=== PATIENT | male | born 1980 | race Two or more races ===

== ENCOUNTER 2024-01-16 10:12 | Outpatient (AMB) | payer MEDICAID, SELFPAY ==
[2024-01-16 10:25] VITALS: BP 72/46; PULSE 96; RESP 16; TEMP 36.3; O2SAT 95
--- NOTE | 2024-01-16 10:25 | PD.RESCLINIC ---
Vital Signs 01/16/24 10:25 Weight 37.648 kg Weight Measurement Method Standing Scale BP 72/46 L Blood Pressure Source Automatic Cuff Blood Pressure Location Left Upper Arm Position Sitting Respiration 16 Pulse 96 Pulse Source Monitor Temp 97.4 F Temp Source Oral Pulse Oximetry (%) 95 Oxygen Delivery Method Room Air Allergies/Meds Allergies & Medications Allergies No Known Allergies Allergy (Verified 02/03/24 14:04) Medication Reconciliation ondansetron 4 mg disintegrating tablet 4 mg PO Q6H PRN nausea and vomiting #10 tabs 08/29/23 [Rx Confirmed 01/16/24] compression socks, medium #2 ea 11/07/23 [Rx Confirmed 01/16/24] midodrine 10 mg tablet 10 mg PO TID PRN hypotension #30 tabs 11/07/23 [Rx Confirmed 01/16/24] dicyclomine 10 mg capsule 10 mg PO TID #60 caps 12/07/23 [Rx Confirmed 01/16/24] loperamide 2 mg capsule 2 mg PO TID #60 caps 12/07/23 [Rx Confirmed 01/16/24] zinc sulfate 50 mg zinc (220 mg) capsule 220 mg (4.4 x 50 mg zinc (220 mg)) PO QDAY #60 caps 12/07/23 [Rx Confirmed 01/16/24] blood sugar diagnostic (Accu-Chek Guide test strips) #100 ea 01/16/24 [Rx] blood-glucose meter (Accu-Chek Guide Glucose Meter) #1 ea 01/16/24 [Rx] fludrocortisone 0.1 mg tablet 0.1 mg PO QDAY #30 tabs 01/16/24 [Rx] lancets 28 gauge (Acti-Anderson Lancets) #100 ea 01/16/24 [Rx] ondansetron 4 mg disintegrating tablet 4 mg PO Q8H #60 tabs 01/16/24 [Rx] acetaminophen 300 mg-codeine 30 mg tablet 2 tab PO TID PRN pain #20 tabs 02/03/24 [Rx] cefdinir 300 mg capsule 300 mg PO BID #14 caps 02/03/24 [Rx] MA Intake Visit Data Collection New Patient or Established: Established Patient (seen at [facility] within 3 years) Seen by Clinical Staff ONLY (RN/MA): No Pain Present Currently: No Pain scale:: 0 Pain Scale Used: Marc-Adler/Numerical PCP or OBGYN visit in last 3 months: Yes Do You Feel Safe at Home: Yes Authorities Contacted: N/A Smoking Status Smoking Status: Never smoker Immunization / Flu Flu Vaccine in the Last 12 Months: No Flu Vaccine Exclusion Criteria: No Exclusion Criteria Past Medical History Past Medical History NEUROLOGIC: Negative Neurological Disorders or Seizures CARDIAC: Positive Hypotension; Negative Cardiac Disorders or Congestive Heart Failure RESPIRATORY: Negative Chronic Obstructive Pulmonary Disease (COPD) or Asthma GASTROINTESTINAL: Negative Gastrointestinal Disorders or Hepatitis GENITOURINARY: Negative Genitourinary Disorders or Renal Disease REPRODUCTIVE: Negative Testicular Cancer ENDOCRINE: Positive Diabetes Mellitus Type 2; Negative Diabetes Mellitus Type 1 HEMATOLOGIC: Negative Blood Disorders or Sickle Cell Disease PSYCHO/SOCIAL: Positive Anxiety OTHER HISTORY: Positive Hospitalization and Chicken Pox; Negative Down Syndrome, Developmental Delay, Shingles, Falls, Blood Transfusions, Anesthesia Reactions, Organ Transplant, Chemotherapy, Radiation Therapy, Hyperbaric Therapy, MRSA, VRSA, Vancomycin-Resistant Enterococci, Human Immunodeficiency Virus (HIV), Measles, Mumps, Rubella (Hungarian Measles), Pertussis, Clostridium Difficile, Cancer or Testicular Cancer Family History FAMILY HISTORY: Positive Family Cardiac Disorders and Family Gastrointestinal Problems; Negative Family Cancer, Family Surgery or Family Anesthesia Reaction Surgical History SURGICAL: Negative Vasectomy or Organ Transplant Social History SMOKING STATUS: Smoking status: Never smoker ALCOHOL: Alcohol Intake: Former HOUSING: Housing: House LIVES WITH: Lives With: Children, Family and Spouse Patient Portal [employer] Social History Living Situation History Housing: House Housing Other:: Pt lives with and Tobacco History Smoking Status: Never smoker Alcohol History Alcohol Intake: Former Substance Use History Substance Use: THC Domestic Abuse History Do You Feel Safe at Home: Yes Review of Systems Report any current symptoms Only answer those that you have currently: Past Medical History Past Medical History Have you ever been diagnosed with any of the following: Neurological Problems Seizures: No Cardiology Problems Congestive Heart Failure: No Hypotension: Yes Respiratory Problems Chronic Obstructive Pulmonary Disease (COPD): No Asthma: No Stomache/Intestinal Problems Hepatitis: No Genital/Urinary Problems Renal Disease: No Reproductive Problems Testicular Cancer: No Endocrine Problems Diabetes Mellitus Type 1: No Diabetes Mellitus Type 2: Yes Blood Problems Sickle Cell Disease: No Psychologic Problems Anxiety: Yes Other Problems Hospitalization: Yes Down Syndrome: No Developmental Delay: No Shingles: No Falls: No Blood Transfusions: No Anesthesia Reactions: No Organ Transplant: No Chemotherapy: No Radiation Therapy: No Hyperbaric Therapy: No MRSA: No VRSA: No Vancomycin-Resistant Enterococci: No Human Immunodeficiency Virus (HIV): No Chicken Pox: Yes Measles: No Mumps: No Rubella (Hungarian Measles): No Pertussis: No Clostridium Difficile: No Cancer: No History of Present Illness HPI Narrative 12/12/2023: Chucho is a 43-year-old male patient with significant medical history for DM2, chronic intermittent diarrhea, orthostatic hypotension and chronic marijuana abuse who was admitted on December 03, 2023 for symptomatic UTI, syncope, orthostatic hypotension and evaluation of chronic diarrhea. Patient has been admitted to [facility] for similar complaints of syncope, orthostatic hypotension and diarrhea in the past. Today patient is doing okay. He had come in saying he has been eating more, has not had diarrhea since he left the hospital and has not vomited still at the hospital either. Says he had 1 time where he had a syncopal episode while at home, but did not fall. Says that he does not weigh himself daily, but says that he has gained an extra 5 pounds. Says that he was not able to take the fludrocortisone medicine he was given at discharge because the pharmacy had canceled the order. Is further requiring what is going on with him. Denies any chest pain, shortness of breath, numbness, tingling, headache, abdominal pain, NVD. Confirms that he has not traveled out to the [facility] within the past year, says he used to work for [employer] in the past, used to work for [employer]. Also says that he noticed his chronic diarrhea occurring when he had taken metformin but still continue to persist after he had stopped taking it. Also endorses that his weight loss and symptoms have occurred about a year and a half ago and he has lost about 50 pounds. Says his bowel movements have been solid and his last one was yesterday 12/19/2023: 43 y/o male with PMHx of DM2, chronic intermittent diarrhea, orthostatic hypotension and chronic marijuana abuse who is seen over telephone visit. Reports that he is doing well, has not had a syncopal episode since he was last seen in the hospital. Reports that he has been taking his fludrocoritsone and says that it has been helping him but it has not had significant improvement in his blood pressure. Says that he has never had a tilt table test done or has a database software technician. Reports that he has gained 10 lbs, intake has been good and his weight is 80 lbs now. No other complaints at this time. 01/16/2024: Chucho is a 43 y/o male who comes to the office for follow-up of orthostatic hypotension, chronic diarrhea with associated nausea and vomiting. Patient reports he is doing well, has not felt nauseous since [place], has been eating and is weighing currently at 82 pounds which is improved for him. He also says that he has been working with the physical therapist at home and has been improving from that perspective and has been using his chair as well. He says he gets up slowly to avoid passing out which she has not done for a long time now. He also says that he has been taking his medicines as prescribed and is requesting some refills on some. He reports that his bowel movements have been sometimes solid and sometimes loose but have been good. Has not seen the database software technician yet. No other complaints at this time Review of Systems Review of Systems Narrative Review of Systems: Constitutional: No fever, chills, fatigue, weakness, weight loss HEENT: No eye pain, vision loss, ear pain, hearing loss, dysphagia, Cardiovascular: No chest pain, palpitations, edema, pain with walking Respiratory: No cough, shortness of breath, wheezing GI: No NVD, abdominal pain, constipation, blood in stool, loss of appetite, heartburn Extremities: No presence of pitting edema MSK: No back pain, joint pain, joint swelling Neuro: No dizziness, numbness, weakness, headaches, seizures, tremors Psych: No anxiety, depression Objective/Exam Narrative Physical exam: General: AAOx3, NAD, anorexic but pleasant male, looks emaciated, in chairs sitting down with HEENT: Moist mucous membranes, conjunctiva clear, EOMI, PERRLA, Cardiovascular: S1, S2, radial pulses +2 bilat, RRR Pulmonary: CTAB bilat no cough, no wheezing GI: No tenderness to light or deep palpitation, no guarding, rigidity, rebound tenderness or distension, rib cage visible Extremities: No presence of trace or pitting edema in lower extremities bilaterally, dorsalis pedis pulses +2 bilaterally, little to no musculature in lower extremities Neuro: AAOx3, no focal motor or sensory deficits in the UE or LE bilat Psych: Good judgement, thought and behavior. Cooperative Assessment & Plan Diagnosis / Problem List (1) Failure to thrive: Status: Acute Qualifiers: Failure to thrive age range: in adult Qualified Code(s): R62.7 - Adult failure to thrive Assessment & Plan: Patient reports a weight loss of about 50 pounds within the past year and a half. In the hospital patient was worked up for any malignancy and/or reason for significant weight loss Patient has had imaging of chest abdomen pelvis, head including MRI which have been unremarkable Negative for Giardia, hepatitis, HIV, celiac Pending cortisol level which was drawn in the hospital Patient was not given fludrocortisone upon discharge at the pharmacy Total cortisol level normal, ruling out AI at this time Patient is still experiencing hypotension, has not seen database software technician Reports that he has seen improvement with fludrocortisone, will continue with that until patient sees database software technician Plan: Refill fludrocortisone 0.1 mg daily Encourage patient to increase oral intake (2) Cachexia: Status: Acute Assessment & Plan: As above Plan: As above (3) Severe hypotension: Status: Acute Assessment & Plan: Patient had walked into clinic with a blood pressure of 41/33 Manually measured given 70/50 Patient has history of orthostatic hypotension Currently on midodrine 10 mg 3 times daily Total cortisol came back normal, ruling out AI We will need to further workup Will need Tilt table for autonomic workup Plan: Pending cardiology referral with Dr. Ayers in [place] for Tilt Table test Continue with fludrocortisone 0.1 mg Continue with midodrine 10 mg 3 times daily (4) Syncope: Status: Acute Assessment & Plan: As above Plan: As above (5) Diarrhea: Status: Acute Assessment & Plan: Has not had diarrhea since he has left the hospital Was seen by GI, Dr. Marie, unable to get an appoint with them due to insurance Has not had colonoscopy EGD showed Devine's esophagus, esophagitis gastritis Will need colonoscopy for further workup Given dicyclomine and loperamide by Dr. Marie Plan: Pending referral to [facility] 2. Continue dicyclomine and loperamide (6) Vomiting: Status: Acute Assessment & Plan: As above Plan: Refilled Zofran four milligrams sublingual (7) Diabetes mellitus: Status: Acute Assessment & Plan: Patient says he takes 3 units of Lantus Says that he has been running out of some supplies Does not take short acting Plan: *Strips and glucometer Additional Assessment Attending note: I, Lambert Trejo MD, attest that I was physically present for the [place] portions of the service and evaluated the patient with the resident and I reviewed and discussed the case with the resident and agree with the resident's findings and plans of care as documented above. Follow-up visit. Improvement in nausea. Weight has gone up approximately 3 kg. Has been working with physical therapy. Changes positions slowly, has not felt presyncopal. Tolerating medications. Bowel movements occasionally formed, sometimes still with loose stool. Remains on fludrocortisone. Remains on midodrine. To follow-up with cardiology. Issues as noted. Lambert Trejo MD Physician Billing Established Patient Established Patient: E/M Level 3-CPT 14003 Office Procedures [facility] Level of Care Nursing/Assessment Patient Status: Established Patient Nursing Assessment/Reassessment: Medication Reconciliation, Update PMH in EMR and Vital Signs Coordination of Care: Complex Care and Chronic Disease 1-5, Education Complex Pt/Fam and Staff clarify orders Established Patient Charge Established Patient Point Assignment: 85 Established Patient Point Charge: EP Level 3 (80-115)
== END 2024-01-16 11:45 | disposition home or self-care (01) ==
LOC: HODAHC 10:12
PROVIDERS: Supervising Provider Internal Medicine
DX: I95.1 Orthostatic hypotension (principal); E11.9 Type 2 diabetes mellitus without complications; Z79.4 Long term (current) use of insulin; Z76.0 Encounter for issue of repeat prescription; R11.2 Nausea with vomiting, unspecified; K52.9 Noninfective gastroenteritis and colitis, unspecified; R19.7 Diarrhea, unspecified
CPT/HCPCS: 99213; G0463

== ENCOUNTER 2024-02-03 14:02 | Emergency (ER) | payer MEDICAID, SELFPAY ==
[2024-02-03 14:10] VITALS: BP 159/107; PULSE 100; RESP 18; TEMP 37.3; O2SAT 99; BMI 13.4
--- NOTE | 2024-02-03 14:17 | XR_ITS ---
Examination: PA lateral chest 2 views TECHNIQUE: Upright PA lateral chest 2 views Exam date and time: February 03, 2024 1427 hours Comparison 11/03/2023 INDICATIONS: Coughing today. FINDINGS: Normal heart size Lungs are clear. The osseous structures are intact IMPRESSION: No active disease
--- NOTE | 2024-02-03 14:18 | PD.EDRME ---
Rapid Medical Screening Exam RME Arrival date/time: 02/03/24 14:02 43-year-old chronically ill-appearing male presents emergency department complains of nausea vomiting and abdominal pain Chief Complaint: Abdominal Pain Time Seen by Provider: 02/03/24 14:05 Vital signs: Vital Signs Temperature 99.2 F 02/03/24 14:10 Pulse Rate 100 02/03/24 14:10 Respiratory Rate 18 02/03/24 14:10 Blood Pressure 159/107 H 02/03/24 14:10 Pulse Oximetry (%) 99 02/03/24 14:10 Oxygen Delivery Method Room Air 02/03/24 14:10
[2024-02-03] MEDS: HYDROcodone/APAP 5/325 TABLET 1 TAB PO (14:25)
[2024-02-03 14:58] LABS: Collection Type, Urine Clean Catch
[2024-02-03 15:01] LABS: Base Excess, Venous -1 (-3-3); O2 Saturation, Venous 78 % (96-97); PCO2, Venous 36 mmHg (36-56); PO2, Venous 40 mmHg (15-58); pH, Venous 7.41 (7.33-7.66)
[2024-02-03 15:02] LABS: Basophils % (Auto) 1 % (0-2.5); Eosinophils % (Auto) 0 % (0-10); Hematocrit 32.3 % (41.0-53.0); Hemoglobin 11.4 g/dL (13.5-16.0); Immature Granulocytes % (Auto) 0 % (0-0); Immature Granulocytes Auto 0.03 Thou/mm3 (0.00-0.00); Lactate (Lactic Acid) 1.6 mMol/L (0.4-2.0); Lymphocytes # (Auto) 1.4 Thou/mm3 (1.0-4.8); Lymphocytes % (Auto) 16 % (10-50); Mean Corpuscular HGB Conc 35.3 g/dl (31.0-37.0); Mean Corpuscular Hemoglobin 30.6 pg (25.0-35.0); Mean Corpuscular Volume 87 fL (80-100); Monocytes # (Auto) 0.3 Thou/mm3 (0.0-0.8); Monocytes % (Auto) 3 % (0-12); Neutrophils % (Auto) 80 % (37-80); Nucleated Red Blood Cell % 0 /100 WBC (0); Platelet Count 219 Thou/mm3 (140-440); RDW Standard Deviation 38.2 fL (35.1-43.9); Red Blood Count 3.73 Miln/mm3 (4.50-5.90); White Blood Count 8.8 Thou/mm3 (3.8-10.6)
[2024-02-03 15:05] LABS: Bilirubin,Urine Negative (Negative); Blood,Urine Negative (Negative); Clarity,Urine Clear (Clear/Hazy); Color,Urine Lt-Yellow (Lt Yel-Yel); Glucose, Urine Negative (Negative); Ketones,Urine Trace (Negative); Leukocyte Esterase,Urine Negative (Negative); Nitrite,Urine Negative (Negative); PH,Urine 5.5 (5.0-7.0); Protein,Urine Negative (Neg - Trace); RBC,Urine 8 /hpf (0-3); Specific Gravity,Urine 1.015 (1.001-1.035); Squamous Epithelial Cell,Urine < 1 /hpf (0-5); Urobilinogen,Urine Negative mg/dL (0.0-1.0); WBC,Urine 5 /hpf (0-5)
[2024-02-03 15:08] LABS: Beta Hydroxybutyrate 1.7 mmol/L (<0.6)
[2024-02-03 15:19] LABS: Glucose Estimated Average 163 mg/dL (80-131); Hemoglobin A1C 7.3 % Hgb (4.8-6.0)
[2024-02-03 15:45] LABS: Alanine Aminotransferase 19 U/L (10-49); Albumin, Serum 4.5 gm/dL (3.5-5.0); Albumin/Globulin Ratio 1.7 (1.2-2.2); Alkaline Phosphatase 116 U/L (46-116); Anion Gap 13 (7-16); Aspartate Amino Transferase 23 U/L (0-34); BUN/Creatinine Ratio 9 Ratio (12-20); Bilirubin,Total 0.6 mg/dL (0.3-1.2); Blood Urea Nitrogen 13 mg/dL (9-23); Calcium 9.7 mg/dL (8.3-10.6); Calcium (Corrected) 9.7 mg/dL (8.5-10.1); Carbon Dioxide 20.3 mMol/L (20.0-31.0); Chloride 103 mMol/L (98-107); Creatinine (Component) 1.4 mg/dL (0.6-1.3); Estimated Creatinine Clearance 34.6 mL/min (>60); Globulin 2.6 gm/dL (2.3-3.5); Glucose 179 mg/dL (74-106); Lipase 23 U/L (12-53); Osmolality,Calculated 276 (275-295); Potassium 4.2 mMol/L (3.4-5.1); Procalcitonin < 0.04 ng/ml (0.0-0.49); Sodium 136 mMol/L (136-145); Total Protein 7.1 gm/dL (5.7-8.2); eGFR > 60 See Note
--- NOTE | 2024-02-03 16:32 | EDNOTE_ITS ---
ED Abdominal Pain RME/HPI General Chief Complaint: Abdominal Pain Stated complaint: ABD PAIN TODAY Time seen by provider: 02/03/24 14:05 Arrival date/time: 02/03/24 14:02 RME / HPI RME / HPI narrative: 02/03/24 14:02 43-year-old chronically ill-appearing male presents emergency department complains of nausea vomiting and abdominal pain DR. MAC MAIN ED EVALUATION 43 year old male with history of insulin-dependant diabetes and hypotension presents to the ED for evaluation of abdominal pain today. Patient reports pain began this morning and located most to the right mid abdomen, rating as severe. Accompanied by nausea, blood in vomit (~ 1 teaspoon), and nonbloody diarrhea. Patient reports he has taken Aspirin at home with no improvement. Denies fevers, chills, chest pain, cough, shortness of breath, or urinary symptoms. Related Data Previous Rx's ?Medication ?Instructions ?Recorded ondansetron 4 mg disintegrating 4 mg PO Q6H PRN nausea and 08/29/23 tablet vomiting #10 tabs compression socks, medium #2 ea 11/07/23 midodrine 10 mg tablet 10 mg PO TID PRN hypotension #30 11/07/23 tabs dicyclomine 10 mg capsule 10 mg PO TID #60 caps 12/07/23 loperamide 2 mg capsule 2 mg PO TID #60 caps 12/07/23 zinc sulfate 50 mg zinc (220 mg) 220 mg (4.4 x 50 mg zinc (220 mg)) 12/07/23 capsule PO QDAY #60 caps blood sugar diagnostic (Accu-Chek #100 ea 01/16/24 Guide test strips) blood-glucose meter (Accu-Chek #1 ea 01/16/24 Guide Glucose Meter) fludrocortisone 0.1 mg tablet 0.1 mg PO QDAY #30 tabs 01/16/24 lancets 28 gauge (Acti-Anderson #100 ea 01/16/24 Lancets) ondansetron 4 mg disintegrating 4 mg PO Q8H #60 tabs 01/16/24 tablet Allergies Allergy/AdvReac Type Severity Reaction Status Date / Time No Known Allergies Allergy Verified 02/03/24 14:04 Review of Systems Review of Systems Narrative Review of Systems: GEN: No fever, no chills, no weight loss EYES: No discharge, no visual changes, no pain HEENT: No ear pain, no congestion, no sore throat PULM: No shortness of breath, no cough, no congestion CV: No chest pain, no dyspnea on exertion, no palpitations GI: +N/V/D, +pain, no constipation : No frequency, no urgency and no dysuria MUSC/SKEL No joint pain, no back pain SKIN: No rash PSYCH: No hallucinations, no depression HEME/LYMPH: No easy bleeding or bruising tendencies NEURO: No weakness, no headache Past Medical History Past Medical History CARDIAC: Positive Hypotension ENDOCRINE: Positive Diabetes Mellitus Type 2 PSYCHO/SOCIAL: Positive Anxiety OTHER HISTORY: Positive Hospitalization and Chicken Pox Family History FAMILY HISTORY: Positive Family Cardiac Disorders and Family Gastrointestinal Problems; Negative Family Cancer, Family Surgery or Family Anesthesia Reaction Surgical History SURGICAL: Negative Vasectomy Social History SMOKING STATUS: Never smoker SUBSTANCE USE: marijuana, amphetamines (Positive and U tox) and methamphetamine ED Exam Narrative Physical exam: GENERAL APPEARANCE: Well hydrated, cachectic, groaning and moaning in pain, moving around in bed. VITALS: All vitals were reviewed and the pulse ox is 99% on room air which is normal according to my interpretation. HEENT: Normocephalic, atramatic, EOMI, EACs are patent. There is no bulge or retraction. Throat without erythema or exudate. Moist oromucosa. No jaundice NECK: Supple, no JVD or bruits. CARDIOVASCULAR: Heart regular without S3-S4 or murmur. No rubs or gallops. LUNGS/CHEST: Clear to auscultation bilaterally. No rales, rhonchi, or wheezing. Normal inspection. ABDOMEN: Soft, scaphoid, skinny, cachectic, tenderness in the right lower right mid and left lower quadrants, normal bowel sounds. No pulsatile masses. No rebound, rigidity, or guarding. No incarcerated hernia. EXTREMITIES: Normal inspection and palpation. No edema, clubbing, or cyanosis. Intact CSM SKIN: Warm and dry without rashes. Normal inspection. MUSCULOSKELETAL: Normal inspection. No gross deformity, full ROM all extremities NEURO: Alert and oriented x3. Cranial nerves II through XII grossly intact. Course Quality Measures none Orders Category Date Time Status CT Screening NOW Care 02/03/24 16:[address] abdomen pelvis w con Stat Exams 02/03/24 16:42 Ordered XR chest 2V Stat Exams 02/03/24 14:17 Completed A1C [Glycohemoglobin w (eAG)] Stat Lab 02/03/24 14:50 Completed Beta Hydroxybutyrate Stat Lab 02/03/24 14:50 Completed Blood Culture (Lab) Stat Lab 02/03/24 14:50 Received CBC Stat Lab 02/03/24 14:50 Completed Comprehensive Metabolic Panel Stat Lab 02/03/24 14:50 Completed Drug Screen,Urine Stat Lab 02/03/24 16:44 Ordered Lactate (Lactic Acid) Stat Lab 02/03/24 14:50 Completed Lipase Stat Lab 02/03/24 14:50 Completed Procalcitonin Stat Lab 02/03/24 14:50 Completed Urinalysis Stat Lab 02/03/24 14:50 Completed Urine Culture Stat Lab 02/03/24 14:50 Received VBG [Venous Blood Gas] Stat Lab 02/03/24 14:50 Completed HYDROcodone*/APAP 5/325 [[place] 5/325] Med 02/03/24 14:17 Discontinued 1 tab PO X1 ONE Morphine Inj Med 02/03/24 16:42 Discontinued 4 mg IVP X1 ONE Ondansetron Inj [Zofran Inj] Med 02/03/24 16:42 Discontinued 4 mg IV X1 ONE Sodium Chloride 0.9% 1000 ml [Ns] 1,000 ml Med 02/03/24 16:43 Discontinued IV 999 mls/hr Vital Signs Vital signs: Vital Signs Temperature 99.2 F 02/03/24 14:10 Pulse Rate 100 02/03/24 14:10 Respiratory Rate 18 02/03/24 14:10 Blood Pressure 159/107 H 02/03/24 14:10 Pulse Oximetry (%) 99 02/03/24 14:10 Oxygen Delivery Method Room Air 02/03/24 14:10 Abdominal Pain MDM MDM Narrative MDM Narrative:: I, Karen Calixto, am scribing for and in the presence of Dr. Mac. CBC is negative. CMP is negative except for a sugar 179. Beta hydroxy is 1.7 which may reflect dehydration. Venous blood gas is negative. No sign of DKA. UA negative. Procalcitonin negative. Lactic acid is negative. Lipase is negative When I saw the patient, he was still well in the lobby. I am ordering for IV fluids, medication for pain and CT abdomen and pelvic. 6 PM, still pending CT abdomen and pelvic, the patient is stable and is now signed out to Dr. Sanchez Patient data External records reviewed:: [facility] previous records (I reviewed admission from 12/02/2023 through 12/09/2023) Clinical information provided by:: patient and spouse (- adds to hpi ) Social determinants that could affect healthcare access:: substance use (chronic marijuana use ) Patient has the following chronic illnesses:: IDDM type 2, hypotension How is presenting disease/condition affected by chronic disease/condition?: exacerbated by Evaluation data The following diagnostics were reviewed and interpreted by me:: lab results and radiology exam(s) Lab and/or radiology exams considered but not ordered:: None Interpretation Summary: Ordering Physician: Elisabeth GIBSON)Michele NP Date of Service: 02/03/24 Procedure(s): XR chest 2V Accession Number(s): [id number] cc: Elisabeth GIBSON),Michele DIAZ; Maxim Jamison MD~ Examination: PA lateral chest 2 views TECHNIQUE: Upright PA lateral chest 2 views Exam date and time: February 03, 2024 1427 hours Comparison 11/03/2023 INDICATIONS: Coughing today. FINDINGS: Normal heart size Lungs are clear. The osseous structures are intact IMPRESSION: No active disease Dictated By: Maxim Jamison MD Signed By: <Electronically signed by Maxim Jamison MD in [place]> 02/03/24 1443 Medications / Prescriptions Medications or Prescriptions considered but not ordered:: None Medication administrations:: Medication Administration History Discontinued Medications Hydrocodone Bitart/Acetaminophen (Hydrocodone/Apap 5/325 Tablet) 1 tab PO X1 ONE Stop: 02/03/24 14:18 Last Admin: 02/03/24 14:25 Dose: 1 tab Documented By: CHLOE Sodium Chloride (Ns) 1,000 mls @ 999 mls/hr IV .Q1H1M ONE Stop: 02/03/24 17:43 Morphine Sulfate (Morphine Sulf Inj 10 Mg/Ml Vial) 4 mg IVP X1 ONE Stop: 02/03/24 16:43 Ondansetron HCl (Ondansetron Inj 2 Mg/Ml Inj 2 Ml) 4 mg IV X1 ONE; Protocol Stop: 02/03/24 16:43 See above Consultations Consultation(s) initiated? (list below): No Diagnosis Differential diagnosis abdominal pain: abdominal pain, acute appendicitis and ca lculus of kidney Most likely diagnosis given after review of the tests above:: Abdominal pain Admission Indicated Admission indicated?: not indicated Explain why admission is indicated or not indicated:: Patient signed out to Dr. Mac pending CT abdomen. Admission Request Was there a request for admission?: No Disposition Plan Disposition Plan: other (specify) (Signed out pending CT abdomen. ) Discharge Plan Plan Disposition Comment: Stable at signout Prescriptions/Referrals Prescriptions/Med Rec: No Action fludrocortisone 0.1 mg tablet 0.1 mg PO QDAY Qty: 30 1RF ondansetron 4 mg tablet,disintegrating 4 mg PO Q8H Qty: 60 0RF (DME) blood-glucose meter [Accu-Chek Guide Glucose Meter] Misc See Rx Instructions .Route Qty: 1 0RF Rx Instructions: As directed (DME) Accu-Chek Guide test strips Strip See Rx Instructions .Route Qty: 100 2RF Rx Instructions: As directed (DME) lancets [Acti-Anderson Lancets] 28 gauge misc See Rx Instructions .Route Qty: 100 2RF Rx Instructions: As directed ondansetron 4 mg tablet,disintegrating 4 mg PO Q6H PRN (Reason: nausea and vomiting) Qty: 10 0RF zinc sulfate 50 mg zinc (220 mg) Capsule 220 mg PO QDAY Qty: 60 0RF dicyclomine 10 mg capsule 10 mg PO TID Qty: 60 0RF loperamide 2 mg capsule 2 mg PO TID Qty: 60 0RF midodrine 10 mg tablet 10 mg PO TID PRN (Reason: hypotension) Qty: 30 0RF Rx Instructions: do not give last dose of day after 6PM or within 4 hrs of bedtime Give as needed for blood pressure below 110 systolic (DME) compression socks, medium Misc See Rx Instructions .Route Qty: 2 0RF Rx Instructions: As directed Referrals: Sidney Dick PA-C [Primary Care Provider] - In 1 week Problem List Clinical Impression: Abdominal pain Patient/Caregiver Discharge Instructions Print Language: Frisian
--- NOTE | 2024-02-03 16:42 | XR_ITS ---
Examination: CT abdomen with intravenous contrast CT pelvis with intravenous contrast 2-D coronal reconstructions 2-D sagittal reconstructions Date and time of exam:February 03, 2024 1927 hrs. Indications: Onset right lower abdominal pain today. CTDI: vol (mGy) 3.17 DLP: (mGycm) 154 Technique: Multiple axial sections of the abdomen and pelvis have been obtained. 64 slice high-resolution scanner used. 3 mm axial sections have been obtained, post intravenous injection 30 cc Isovue 300 2-D sagittal, coronal reconstructions obtained. Low dose protocols were performed. One or more of the following dose reduction techniques were used; automated exposure control, adjustment of the mA and/or KV according to patient size, use of iterative reconstruction technique. Findings: No focal liver or splenic lesion No gallstones No pancreatic or adrenal mass No renal or ureteral calculi, no hydronephrosis Suspicious for focal areas of edema in the right kidney for instance coronal image 68 Abdominal aortic calcification no aneurysmal dilatation No pericecal inflammatory change Normal appendix Distended urinary bladder No prostatomegaly Mild osteopenia Impression: Suspicious for right pyelonephritis, clinical correlation advised No CT findings of bowel obstruction, appendicitis or diverticulitis
[2024-02-03] MEDS: ONDANSETRON INJ 2 MG/ML INJ 2 ML 4 MG IV (18:20)
--- NOTE | 2024-02-03 18:29 | PD.EDADDENDU ---
Emergency Room Addendum <Wilma Oliveros - Last Filed: 02/03/24 20:58> Addendum Narrative: 1800: Care assumed from Dr. Noble, the previous shift emergency physician. Past medical, surgical, social and family history reviewed. Vitals and home medications reviewed. Results and treatment plan discussed. I will assume the care of the patient at this time and will follow the patient, pending CT abdomen pelvis. Please refer to the emergency department record for history and examination from initial visit. I reviewed all diagnostic test results. My review of the CT report is Based on my best medical judgment, made decision no further evaluation or treatment indicated at this time. Patient understands and agrees to the discharge instructions customized and printed, see below. Discharge instructions from Dr. Sanchez: 1. After evaluation, you have right kidney infection which can cause severe pain. 2. Take cefdinir to kill the germs causing the infection.? Increase oral fluid to flush it out.? Maintain clear urine.? If dark or yellow, increase oral fluid. 3. Zofran for nausea/vomiting.? Toradol and Tylenol with codeine for pain. 4. See a private doctor on 02/06/2024 for recheck.? Ask to check the final urine culture results from today to make sure cefdinir doesn't need to be changed due to resistance. 5. Seek immediate medical care with worsening, fever, or with any concerns. Win Sanchez MD <Win Sanchez MD - Last Filed: 02/03/24 21:01> Addendum Narrative: 1800: Care assumed from Dr. Noble, the previous shift emergency physician. Past medical, surgical, social and family history reviewed. Vitals and home medications reviewed. Results and treatment plan discussed. I will assume the care of the patient at this time and will follow the patient, pending CT abdomen pelvis. Please refer to the emergency department record for history and examination from initial visit. I reviewed all diagnostic test results. My interpretation of the chest x-ray is no acute findings. My review of the CT report is right pyelonephritis. Blood tests and urine tests remarkable for UA with RBC and WBC. Diagnoses include pyelonephritis. Treatment here included IV fluid and Zofran and Toradol and morphine and Rocephin. Significant improvement noted. Recommended a trial of outpatient treatment. Based on my best medical judgment, made decision no further evaluation or treatment indicated at this time. Patient understands and agrees to the discharge instructions customized and printed, see below. Discharge instructions from Dr. Sanchez: 1. After evaluation, you have right kidney infection which can cause severe pain. 2. Take cefdinir to kill the germs causing the infection.? Increase oral fluid to flush it out.? Maintain clear urine.? If dark or yellow, increase oral fluid. 3. Zofran for nausea/vomiting.? Toradol and Tylenol with codeine for pain. 4. See a private doctor on 02/06/2024 for recheck.? Ask to check the final urine culture results from today to make sure cefdinir doesn't need to be changed due to resistance. 5. Seek immediate medical care with worsening, fever, or with any concerns. Win Sanchez MD
[2024-02-03] MEDS: MORPHINE SULF INJ 10 MG/ML VIAL 4 MG IVP (19:09)
[2024-02-03] MEDS: SODIUM CHLORIDE 0.9% 1000 ML 1,000 ML 999 ML IV (19:10)
[2024-02-03 20:17] LABS: Amylase 33 U/L (30-118); Magnesium 1.8 mg/dL (1.6-2.6)
[2024-02-03] MEDS: cefTRIAXone/D5w 1gm IV premix 50 ML IV (21:07)
[2024-02-03 21:55] VITALS: BP 128/78; PULSE 88; RESP 16; TEMP 36.6; O2SAT 99
== END 2024-02-03 21:55 | disposition home or self-care (01) ==
PROVIDERS: Nurse Practitioner Primary Care; Emergency Provider Emergency Medicine; PCP Physician Assistant
DX: R10.9 Unspecified abdominal pain (principal); E11.9 Type 2 diabetes mellitus without complications; R19.7 Diarrhea, unspecified; R05.9 Cough, unspecified
CPT/HCPCS: 36415; 71046; 74177; 80053; 80307; 81001; 82010; 82150; 82803; 83036; 83605; 83690; 83735; 84145; 85025; 87040; 87086; 99285; A4649; J0696; J2270; J2405; J7030; Q9967; A9270

== ENCOUNTER 2024-02-18 13:49 | Emergency (ER) | payer SELFPAY ==
[2024-02-18 14:15] VITALS: BP 135/93; PULSE 93; RESP 18; TEMP 36.7; O2SAT 98
--- NOTE | 2024-02-18 14:33 | PD.EDABDPN ---
ED Abdominal Pain RME/HPI General Chief Complaint: Abdominal Pain Stated complaint: abd. pain, nausea since this am Time seen by provider: 02/18/24 14:06 Arrival date/time: 02/18/24 13:49 RME / HPI RME / HPI narrative: 43-year-old male presents with complaint of left upper quadrant abdominal pain with nausea and vomiting onset approximately 4 hours ago. Patient describes the pain as sharp and burning. Denies any diarrhea. No fevers. No sick contacts at home. Related Data Previous Rx's ?Medication ?Instructions ?Recorded ondansetron 4 mg disintegrating 4 mg PO Q6H PRN nausea and 08/29/23 tablet vomiting #10 tabs compression socks, medium #2 ea 11/07/23 midodrine 10 mg tablet 10 mg PO TID PRN hypotension #30 11/07/23 tabs dicyclomine 10 mg capsule 10 mg PO TID #60 caps 12/07/23 loperamide 2 mg capsule 2 mg PO TID #60 caps 12/07/23 zinc sulfate 50 mg zinc (220 mg) 220 mg (4.4 x 50 mg zinc (220 mg)) 12/07/23 capsule PO QDAY #60 caps blood sugar diagnostic (Accu-Chek #100 ea 01/16/24 Guide test strips) blood-glucose meter (Accu-Chek #1 ea 01/16/24 Guide Glucose Meter) fludrocortisone 0.1 mg tablet 0.1 mg PO QDAY #30 tabs 01/16/24 lancets 28 gauge (Acti-Anderson #100 ea 01/16/24 Lancets) ondansetron 4 mg disintegrating 4 mg PO Q8H #60 tabs 01/16/24 tablet acetaminophen 300 mg-codeine 30 mg 2 tab PO TID PRN pain #20 tabs 02/03/24 tablet cefdinir 300 mg capsule 300 mg PO BID #14 caps 02/03/24 Allergies Allergy/AdvReac Type Severity Reaction Status Date / Time No Known Allergies Allergy Verified 02/18/24 13:53 Review of Systems Review of Systems Narrative Review of Systems: Review of systems negative except as outlined in the HPI. ED Exam Narrative Physical exam: Constitutional: no acute distress, age appropriate, non-toxic. Appears uncomfortable. Slightly cachectic. Eyes: PERRL, conjunctivae w/o pallor, EOMI HENT: normocephalic, atraumatic. Oral mucosa moist Respiratory Effort: no stridor, effort normal, no retractions Breath sounds: Clear bilaterally; No rales, No rhonchi, No wheezing Cardiovascular: regular rhythm, S1 and S2 normal, no murmur Abdominal: soft; non-distended. Left upper quadrant tenderness. No rebound tenderness or guarding. No McBurney point tenderness Musculoskeletal: no deformities, no swelling, no LE edema Skin: warm, dry; No rash Neurology: alert, oriented X 4. Normal gait. Moves all extremities spontaneously. Psychology: cooperative, normal mood Course Quality Measures none Orders Category Date Time Status Miscellaneous Nursing Order NOW Care 02/18/24 17:52 Active CBC Stat Lab 02/18/24 14:56 Completed CMP [Comprehensive Metabolic Panel] Stat Lab 02/18/24 14:56 Completed Lipase Stat Lab 02/18/24 14:56 Completed Urinalysis Stat Lab 02/18/24 14:28 Ordered Haloperidol Lactate [Haldol Inj] Med 02/18/24 14:32 Discontinued 5 mg IM X1 ONE Ondansetron Odt [Zofran Odt] Med 02/18/24 14:32 Discontinued 4 mg PO X1 ONE Vital Signs Vital signs: Vital Signs Temperature 98.1 F 02/18/24 14:15 Pulse Rate 93 02/18/24 14:15 Respiratory Rate 18 02/18/24 14:15 Blood Pressure 135/93 H 02/18/24 14:15 Pulse Oximetry (%) 98 02/18/24 14:15 Oxygen Delivery Method Room Air 02/18/24 14:15 Abdominal Pain MDM MDM Narrative MDM Narrative:: 43-year-old male presents with complaint of nausea and vomiting, left quadrant pain. Differential diagnoses include gastritis, gastroenteritis, diverticulitis, cannabinoid hyperemesis syndrome. Patient's abdominal exam is quite reassuring, he does not require abdomen/pelvis CT. Low suspicion for diverticulitis, appendicitis, or SBO. History supportive of cannabinoid hyperemesis syndrome as patient has history of chronic nausea and vomiting and is a regular cannabis user. History not supportive of gastritis or gastroenteritis. Labs reviewed and are reassuring. Patient eloped prior to giving UA and prior to reassessment. Multiple attempts to locate the patient were unsuccessful. Patient data External records reviewed:: [facility] previous records Clinical information provided by:: patient Social determinants that could affect healthcare access:: none Patient has the following chronic illnesses:: Diabetes How is presenting disease/condition affected by chronic disease/condition?: exacerbated by Evaluation data The following diagnostics were reviewed and interpreted by me:: lab results and radiology exam(s) Lab and/or radiology exams considered but not ordered:: Consider CT abdomen pelvis, but abdominal exam is reassuring Interpretation Summary: CBC shows no leukocytosis or anemia CMP shows no electrolyte abnormalities, no JULIA. LFTs less than 3x upper limit of normal Medications / Prescriptions Medications or Prescriptions considered but not ordered:: N/A Medication administrations:: Medication Administration History Discontinued Medications Haloperidol Lactate (Haloperidol Lact Inj 5 Mg/Ml Vial) 5 mg IM X1 ONE Stop: 02/18/24 14:33 Last Admin: 02/18/24 14:39 Dose: 5 mg Documented By: XIAO Ondansetron HCl (Ondansetron Odt 4 Mg Tabrap) 4 mg PO X1 ONE; Protocol Stop: 02/18/24 14:33 Last Admin: 02/18/24 14:39 Dose: 4 mg Documented By: XIAO See above Consultations Consultation(s) initiated? (list below): No Diagnosis Differential diagnosis abdominal pain: acute appendicitis, constipation, diverticulitis and gastroenteritis Most likely diagnosis given after review of the tests above:: Cannabinoid hyperemesis syndrome Admission Indicated Admission indicated?: not indicated Admission Request Was there a request for admission?: No Disposition Plan Disposition Plan: Discharge Discharge Attestation Discharge Attestation: The patient and all family members were given an opportunity to ask questions and understood the discharge instructions. Discharge instructions specifically effects, indications for sooner follow up or return to the emergency department, and the expected course of current diagnosis. Patient condition: Stable Discharge Plan Plan Patient Disposition: Elopement Prescriptions/Referrals Prescriptions/Med Rec: No Action fludrocortisone 0.1 mg tablet 0.1 mg PO QDAY Qty: 30 1RF ondansetron 4 mg tablet,disintegrating 4 mg PO Q8H Qty: 60 0RF (DME) blood-glucose meter [Accu-Chek Guide Gl[facility] M[facility] See Rx Instructions .Route Qty: 1 0RF Rx Instructions: As directed (DME) Accu-Chek Guide test strips Strip See Rx Instructions .Route Qty: 100 2RF Rx Instructions: As directed (DME) lancets [Acti-Anderson Lancets] 28 gauge misc See Rx Instructions .Route Qty: 100 2RF Rx Instructions: As directed ondansetron 4 mg tablet,disintegrating 4 mg PO Q6H PRN (Reason: nausea and vomiting) Qty: 10 0RF zinc sulfate 50 mg zinc (220 mg) Capsule 220 mg PO QDAY Qty: 60 0RF dicyclomine 10 mg capsule 10 mg PO TID Qty: 60 0RF loperamide 2 mg capsule 2 mg PO TID Qty: 60 0RF midodrine 10 mg tablet 10 mg PO TID PRN (Reason: hypotension) Qty: 30 0RF Rx Instructions: do not give last dose of day after 6PM or within 4 hrs of bedtime Give as needed for blood pressure below 110 systolic (DME) compression socks, medium Misc See Rx Instructions .Route Qty: 2 0RF Rx Instructions: As directed acetaminophen-codeine 300-30 mg tablet 2 tab PO TID MDD 6 PRN (Reason: pain) Qty: 20 0RF cefdinir 300 mg capsule 300 mg PO BID Qty: 14 0RF Referrals: Mario Oliveros MD [Primary Care Provider] - In 1 week Problem List Clinical Impression: Cannabis hyperemesis syndrome concurrent with and due to cannabis abuse, Eloped from emergency department Patient/Caregiver Discharge Instructions Print Language: Samoan
[2024-02-18] MEDS: ONDANSETRON ODT 4 MG TABRAP PO (14:39)
[2024-02-18] MEDS: HALOPERIDOL LACT INJ 5 MG/ML VIAL IM (14:39)
[2024-02-18 15:10] LABS: Basophils % (Auto) 1 % (0-2.5); Eosinophils % (Auto) 1 % (0-10); Hematocrit 32.4 % (41.0-53.0); Hemoglobin 11.5 g/dL (13.5-16.0); Immature Granulocytes % (Auto) 0 % (0-0); Immature Granulocytes Auto 0.01 Thou/mm3 (0.00-0.00); Lymphocytes # (Auto) 2.3 Thou/mm3 (1.0-4.8); Lymphocytes % (Auto) 35 % (10-50); Mean Corpuscular HGB Conc 35.5 g/dl (31.0-37.0); Mean Corpuscular Hemoglobin 30.5 pg (25.0-35.0); Mean Corpuscular Volume 86 fL (80-100); Monocytes # (Auto) 0.3 Thou/mm3 (0.0-0.8); Monocytes % (Auto) 4 % (0-12); Neutrophils # (Auto) 3.9 Thou/mm3 (1.8-7.7); Neutrophils % (Auto) 60 % (37-80); Nucleated Red Blood Cell % 0 /100 WBC (0); Platelet Count 277 Thou/mm3 (140-440); RDW Standard Deviation 37.7 fL (35.1-43.9); Red Blood Count 3.77 Miln/mm3 (4.50-5.90); White Blood Count 6.6 Thou/mm3 (3.8-10.6)
[2024-02-18 15:37] LABS: Alanine Aminotransferase 22 U/L (10-49); Albumin, Serum 4.4 gm/dL (3.5-5.0); Albumin/Globulin Ratio 1.6 (1.2-2.2); Alkaline Phosphatase 127 U/L (46-116); Anion Gap 7 (7-16); Aspartate Amino Transferase 23 U/L (0-34); BUN/Creatinine Ratio 14 Ratio (12-20); Bilirubin,Total 0.3 mg/dL (0.3-1.2); Blood Urea Nitrogen 17 mg/dL (9-23); Calcium 9.4 mg/dL (8.3-10.6); Calcium (Corrected) 9.4 mg/dL (8.5-10.1); Carbon Dioxide 25.1 mMol/L (20.0-31.0); Chloride 104 mMol/L (98-107); Creatinine (Component) 1.2 mg/dL (0.6-1.3); Globulin 2.8 gm/dL (2.3-3.5); Glucose 109 mg/dL (74-106); Lipase 26 U/L (12-53); Osmolality,Calculated 274 (275-295); Potassium 4.8 mMol/L (3.4-5.1); Sodium 136 mMol/L (136-145); Total Protein 7.2 gm/dL (5.7-8.2); eGFR > 60 See Note
--- NOTE | 2024-02-18 18:26 | PC.NURSE ---
no answer from lobby when calling patient about obtaining urine sample
--- NOTE | 2024-02-18 19:02 | PC.NURSE ---
no answer from lobby when calling patient about obtaining urine sampl
== END 2024-02-18 19:30 | disposition left against medical advice (07) ==
PROVIDERS: Physician Assistant; Emergency Provider Emergency Medicine; PCP Family Medicine
DX: R11.2 Nausea with vomiting, unspecified (principal); F12.10 Cannabis abuse, uncomplicated; Z53.29 Procedure and treatment not carried out because of patient's decision for other reasons
CPT/HCPCS: 36415; 80053; 81001; 83690; 85025; 96372; 99283; J1630; Q0162

== ENCOUNTER 2024-06-04 09:18 | Outpatient (RCR) | payer MEDICAID, SELFPAY ==
--- NOTE | 2024-06-04 10:00 | XR_ITS ---
Examination: TONYA, hepatobiliary radioisotope scan Gallbladder ejection fraction study. Date and time of exam: June 04, 2024 0942 hours INDICATIONS: Sharp abdominal pain and diarrhea one year heartburn Technique: 5.5 mCi of 99M Hepatolite administered. Serial imaging then obtained from immediate through 60 minutes. 1.0 mcg selective catheter Kinevac administered for gallbladder ejection fraction study. Findings: Radioisotope activity within the liver is reasonably homogenous. Gallbladder, common bile duct small bowel activity noted Impression: Gallbladder activity Normal gallbladder ejection fraction 49%, normal greater than 35%
== END 2024-06-09 23:59 | disposition home or self-care (01) ==
LOC: SNUC 09:18
PROVIDERS: Referring Provider Surgery; Visit Provider Surgery
DX: R10.10 Upper abdominal pain, unspecified (principal)
CPT/HCPCS: 78227; A9537; J2805

== ENCOUNTER 2024-08-25 12:55 | Emergency (ER) | payer MEDICAID, SELFPAY ==
[2024-08-25 12:55] VITALS: BMI 16.0
--- NOTE | 2024-08-25 13:06 | XR_ITS ---
Examination: CT abdomen and pelvis without contrast. Coronal 3-D reconstructions. Sagittal 2-D reconstructions. Date and time of exam:August 25, 2024 1347 hours INDICATIONS: Left lower abdominal pain nausea vomiting beginning 2 days ago COMPARISON: February 03, 2024 CTDI: vol (mGy): 3.50 DLP: (mGycm): 167 Technique: Axial images of the abdomen have been obtained, 3 mm slice thickness Intravenous contrast material has not been administered. Low dose protocols were performed. One or more of the following dose reduction techniques were used; automated exposure control, adjustment of the mA and/or KV according to patient size, use of iterative reconstruction technique. Findings: No focal liver or splenic lesions Contracted gallbladder No pancreatic or adrenal mass No renal or ureteral calculi, no hydronephrosis No pericecal inflammatory change No bowel obstruction No diverticulitis Urinary bladder intact No prostatomegaly Mild osteopenia IMPRESSION: No CT findings of appendicitis bowel obstruction or diverticulitis
[2024-08-25 13:08] VITALS: BP 94/63; PULSE 108; RESP 18; TEMP 36.6; O2SAT 96
[2024-08-25 13:27] LABS: Basophils # (Auto) 0.1 Thou/mm3 (0.0-0.2); Basophils % (Auto) 1 % (0-2.5); Eosinophils # (Auto) 0.1 Thou/mm3 (0.0-0.5); Eosinophils % (Auto) 2 % (0-10); Hematocrit 33.8 % (41.0-53.0); Hemoglobin 11.8 g/dL (13.5-16.0); Immature Granulocytes Auto 0.02 Thou/mm3 (0.00-0.00); Lymphocytes # (Auto) 1.7 Thou/mm3 (1.0-4.8); Lymphocytes % (Auto) 28 % (10-50); Mean Corpuscular HGB Conc 34.9 g/dl (31.0-37.0); Mean Corpuscular Hemoglobin 29.6 pg (25.0-35.0); Mean Corpuscular Volume 85 fL (80-100); Monocytes # (Auto) 0.4 Thou/mm3 (0.0-0.8); Monocytes % (Auto) 7 % (0-12); Neutrophils # (Auto) 3.8 Thou/mm3 (1.8-7.7); Neutrophils % (Auto) 62 % (37-80); Nucleated Red Blood Cell # 0.00 Thou/mm3 (0.00-0.00); Nucleated Red Blood Cell % 0 /100 WBC (0); Platelet Count 232 Thou/mm3 (140-440); RDW Standard Deviation 38.7 fL (35.1-43.9); Red Blood Count 3.99 Miln/mm3 (4.50-5.90); White Blood Count 6.1 Thou/mm3 (3.8-10.6)
--- NOTE | 2024-08-25 13:39 | PD.EDABDPN ---
ED Abdominal Pain RME/HPI General Chief Complaint: Nausea/Vomiting/Diarrhea Stated complaint: NAUSEA/VOMITING/DIARRHEA SINCE YESTERDAY Time seen by provider: 08/25/24 12:57 Arrival date/time: 08/25/24 12:55 This is a case of 44-year-old male with history of insulin-dependent diabetes and hypertension came in in the emergency room due to generalized abdominal pain nausea vomiting diarrhea for 2 days persistence of the symptoms this patient decided to sought consult here in the emergency room Limitations: no limitations Related Data Previous Rx's ?Medication ?Instructions ?Recorded ondansetron 4 mg disintegrating 4 mg PO Q6H PRN nausea and 08/29/23 tablet vomiting #10 tabs compression socks, medium #2 ea 11/07/23 midodrine 10 mg tablet 10 mg PO TID PRN hypotension #30 11/07/23 tabs dicyclomine 10 mg capsule 10 mg PO TID #60 caps 12/07/23 loperamide 2 mg capsule 2 mg PO TID #60 caps 12/07/23 zinc sulfate 50 mg zinc (220 mg) 220 mg (4.4 x 50 mg zinc (220 mg)) 12/07/23 capsule PO QDAY #60 caps blood sugar diagnostic (Accu-Chek #100 ea 01/16/24 Guide test strips) blood-glucose meter (Accu-Chek #1 ea 01/16/24 Guide Glucose Meter) fludrocortisone 0.1 mg tablet 0.1 mg PO QDAY #30 tabs 01/16/24 lancets 28 gauge (Acti-Anderson #100 ea 01/16/24 Lancets) ondansetron 4 mg disintegrating 4 mg PO Q8H #60 tabs 01/16/24 tablet acetaminophen 300 mg-codeine 30 mg 2 tab PO TID PRN pain #20 tabs 02/03/24 tablet cefdinir 300 mg capsule 300 mg PO BID #14 caps 02/03/24 cephalexin 500 mg capsule 500 mg PO TID #30 caps 08/25/24 dicyclomine 20 mg tablet 20 mg PO TID PRN abdominal pain 08/25/24 #20 tabs famotidine 20 mg tablet 20 mg PO BID #60 tabs 08/25/24 omeprazole 40 mg capsule,delayed 40 mg PO QDAY #30 caps 07/15/25 release ondansetron 4 mg disintegrating 4 mg PO Q8H PRN nausea and 08/25/24 tablet vomiting #20 tabs Allergies Allergy/AdvReac Type Severity Reaction Status Date / Time No Known Allergies Allergy Verified 08/25/24 12:57 Review of Systems Review of Systems Systems Reviewed: All systems reviewed, normal except as documented Constitutional Constitutional: Reports system reviewed and no additional complaints, except as documented, Denies chills and Denies fever(s) Cardiovascular Cardiovascular: Reports system reviewed and no additional complaints, except as documented and Reports as per HPI Respiratory Respiratory: Reports system reviewed and no additional complaints, except as documented and Reports as per HPI Gastrointestinal Gastrointestinal: Reports system reviewed and no additional complaints, except as documented, Reports as per HPI, Reports abdominal pain, Reports diarrhea, Reports nausea and Reports vomiting Musculoskeletal Musculoskeletal: Reports system reviewed and no additional complaints, except as documented and Reports as per HPI Neurologic Neurologic: Reports system reviewed and no additional complaints, except as documented and Reports as per HPI Past Medical History Past Medical History NEUROLOGIC: Negative Neurological Disorders or Seizures CARDIAC: Positive Hypotension; Negative Cardiac Disorders or Congestive Heart Failure RESPIRATORY: Negative Chronic Obstructive Pulmonary Disease (COPD) or Asthma GASTROINTESTINAL: Negative Gastrointestinal Disorders or Hepatitis GENITOURINARY: Negative Genitourinary Disorders or Renal Disease REPRODUCTIVE: Negative Testicular Cancer MUSCULOSKELETAL: Negative Musculoskeletal Disorders ENDOCRINE: Positive Diabetes Mellitus Type 2; Negative Diabetes Mellitus Type 1 HEMATOLOGIC: Negative Blood Disorders or Sickle Cell Disease PSYCHO/SOCIAL: Positive Anxiety OTHER HISTORY: Positive Hospitalization and Chicken Pox; Negative Autoimmune Disease, Down Syndrome, Developmental Delay, Shingles, Falls, Blood Transfusions, Anesthesia Reactions, Organ Transplant, Chemotherapy, Radiation Therapy, Hyperbaric Therapy, MRSA, VRSA, Vancomycin-Resistant Enterococci, Human Immunodeficiency Virus (HIV), Measles, Mumps, Rubella (Hungarian Measles), Pertussis, Clostridium Difficile, Cancer or Testicular Cancer Family History FAMILY HISTORY: Positive Family Cardiac Disorders and Family Gastrointestinal Problems; Negative Family Cancer, Family Surgery or Family Anesthesia Reaction Surgical History SURGICAL: Negative Vasectomy or Organ Transplant Social History SMOKING STATUS: Never smoker SUBSTANCE USE: marijuana, amphetamines (Positive and U tox) and methamphetamine ED Exam General Limitations: Present no limitations General appearance: Present alert, in no apparent distress and other (Patient is awake alert oriented not in distress nontoxic looking well-hydrated well-nourished) Head Head exam: Present atraumatic, normocephalic and normal inspection Eye Eye exam: Present normal appearance, PERRL and EOMI ENT ENT exam: Present normal exam, normal oropharynx and mucous membranes moist Neck Neck exam: Present normal inspection, full ROM and trachea midline Chest Chest inspection: Present normal inspection and symmetric chest wall rise; Absent tenderness Respiratory Respiratory exam: Present normal lung sounds bilaterally; Absent respiratory distress, wheezes, stridor, accessory muscle use or prolonged expiratory phase Cardiovascular Cardiovascular exam: Present regular rate, normal rhythm and normal heart sounds; Absent bradycardia, tachycardia, irregular rhythm, systolic murmur or diastolic murmur Abdominal Exam Abdominal exam: Present soft, tenderness (Mild tenderness on the left lower and left upper quadrant no CVA tender) and normal bowel sounds; Absent distention, guarding, rebound, diminished bowel sounds, hyperactive bowel sounds, hypoactive bowel sounds, organomegaly, trauma, psoas sign, obturator sign, Santo's sign, Rovsing's sign, tenderness at McBurney's Point or hernia Extremities Exam Extremities exam: Present normal inspection and full ROM Back Exam Back exam: Present normal inspection and full ROM Neurological Exam Neurological exam: Present alert, oriented X3, CN II-XII intact, normal gait and reflexes normal; Absent motor sensory deficit Psychiatric Psychiatric exam: Present normal affect and normal mood Skin Skin exam: Present warm, dry, intact and normal color Course Quality Measures none Orders Category Date Time Status CT abdomen pelvis wo con Stat Exams 08/25/24 13:06 Completed CBC Stat Lab 08/25/24 13:13 Completed Comprehensive Metabolic Panel Stat Lab 08/25/24 13:13 Completed Lipase Stat Lab 08/25/24 13:13 Completed Urinalysis Stat Lab 08/25/24 15:51 Completed Famotidine Inj [Pepcid Inj] Med 08/25/24 15:08 Discontinued 20 mg IVP X1 ONE HYDROcodone*/APAP 5/325 [Antonito 5/325] Med 08/25/24 15:08 Discontinued 1 tab PO X1 ONE Ondansetron Inj [Zofran Inj] Med 08/25/24 15:08 Discontinued 4 mg IVP X1 ONE Sodium Chloride 0.9% 1000 ml [Ns] 1,000 ml Med 08/25/24 15:08 Discontinued IV 999 mls/hr Vital Signs Vital signs: Vital Signs Temperature 97.9 F 08/25/24 13:08 Pulse Rate 108 H 08/25/24 13:08 Respiratory Rate 18 08/25/24 13:08 Blood Pressure 94/63 08/25/24 13:08 Pulse Oximetry (%) 96 08/25/24 13:08 Oxygen Delivery Method Room Air 08/25/24 13:08 Patient is afebrile not tachycardic not tachypneic BP stable oxygen saturation is 96% in room air Abdominal Pain MDM MDM Narrative MDM Narrative:: This is a case of 44-year-old male with history of insulin-dependent diabetes and hypertension came in in the emergency room due to generalized abdominal pain nausea vomiting diarrhea for 2 days persistence of the symptoms this patient decided to sought consult here in the emergency room physical examination patient is awake alert oriented not in distress well-hydrated well-nourished abdominal exam is benign nonsurgical mild tenderness in the left upper and left lower quadrant no guarding no rebound no rigidity negative psoas negative straight or negative Rovsing's negative [place]'s negative Santo sign negative CVA tenderness excellent skin turgor no signs and symptoms of sepsis dehydration or bacteremia or acute abdomen blood test showed no leukocytosis no anemia kidney and liver function is normal no electrolyte imbalance lipase is normal glucose is elevated at 290 and iron Pap is negative thus I need not ordered further testing patient is not in DKA a bolus of normal saline was given blood sugar rechecked and noted to be 149 urinalysis showed positive urinary tract infection CT scan is normal and unremarkable after giving Zofran Antonito and Pepcid patient condition markedly improved at this point patient consideration is possible gastritis and urinary tract infection patient was discharged with cephalexin for UTI omeprazole and famotidine for gastritis patient was advised to follow-up with PCP in 2 days for reevaluation and to be referred to gastro to enterologist for possible EGD modified diet was advised patient need also world history teacher to monitor his blood sugar for any worsening symptoms or any emergent concern he was advised to return in the emergency room immediately or call 911 Patient was discharged with comfortable condition walking with stable gait. Patient verbalized no further complains explained diagnosis and answered patient question. Patient is comfortable with the proposed management plan including the need to follow up with his/her primary care physician and any specialist if applicable Discussed patient for any urgent condition or worsening sx, He/She needed to go to emergency room immediately or call 911. Patient acknowledge the responsibility to follow up as instructed and to monitor her/his symptoms. For any persistence of the symptoms for more than 3-5 days return precaution advised. Discussed the result of the test and was given printed discharge instruction Patient data External records reviewed:: [facility] previous records Clinical information provided by:: patient Social determinants that could affect healthcare access:: none Patient has the following chronic illnesses:: None How is presenting disease/condition affected by chronic disease/condition?: no chronic disease Evaluation data The following diagnostics were reviewed and interpreted by me:: lab results and radiology exam(s) Lab and/or radiology exams considered but not ordered:: Reviewed Interpretation Summary: Reviewed Medications / Prescriptions Medications or Prescriptions considered but not ordered:: Given Medication administrations:: Medication Administration History Discontinued Medications Hydrocodone Bitart/Acetaminophen (Hydrocodone/Apap 5/325 Tablet) 1 tab PO X1 ONE Stop: 08/25/24 15:09 Last Admin: 08/25/24 16:35 Dose: 1 tab Documented By: HUONG Famotidine (Famotidine Inj 10 Mg/Ml Vial 2 Ml) 20 mg IVP X1 ONE Stop: 08/25/24 15:09 Last Admin: 08/25/24 16:39 Dose: 20 mg Documented By: HUONG Sodium Chloride (Ns) 1,000 mls @ 999 mls/hr IV .Q1H1M ONE Stop: 08/25/24 16:08 Last Infusion: 08/25/24 17:26 Dose: Infused Documented By: Admin: 08/25/24 16:37 Dose: 999 mls/hr Documented By: HUONG Ondansetron HCl (Ondansetron Inj 2 Mg/Ml Inj 2 Ml) 4 mg IVP X1 ONE; Protocol Stop: 08/25/24 15:09 Last Admin: 08/25/24 16:40 Dose: 4 mg Documented By: HUONG Given Consultations Consultation(s) initiated? (list below): No Diagnosis Differential diagnosis abdominal pain: abdominal pain, acute appendicitis, calculus of kidney, diverticulitis, endometriosis, gastroenteritis, pancreatitis and small bowel obstruction Most likely diagnosis given after review of the tests above:: Urinary tract infection gastritis Admission Indicated Admission indicated?: not indicated Explain why admission is indicated or not indicated:: Not indicated Admission Request Was there a request for admission?: No Disposition Plan Disposition Plan: Discharge Discharge Attestation Discharge Attestation: The patient and all family members were given an opportunity to ask questions and understood the discharge instructions. Discharge instructions specifically effects, indications for sooner follow up or return to the emergency department, and the expected course of current diagnosis. Patient condition: Stable Discharge Plan Plan Patient Disposition: HOME (Self Care) Patient condition on transfer: Stable Prescriptions/Referrals Prescriptions/Med Rec: New omeprazole 40 mg capsule,delayed release(DR/EC) 40 mg PO QDAY Qty: 30 0RF famotidine 20 mg tablet 20 mg PO BID Qty: 60 0RF ondansetron 4 mg tablet,disintegrating 4 mg PO Q8H PRN (Reason: nausea and vomiting) Qty: 20 0RF cephalexin 500 mg capsule 500 mg PO TID Qty: 30 0RF dicyclomine 20 mg tablet 20 mg PO TID PRN (Reason: abdominal pain) Qty: 20 0RF No Action fludrocortisone 0.1 mg tablet 0.1 mg PO QDAY Qty: 30 1RF ondansetron 4 mg tablet,disintegrating 4 mg PO Q8H Qty: 60 0RF (DME) blood-glucose meter [Accu-Chek Guide Glucose Meter] Misc See Rx Instructions .Route Qty: 1 0RF Rx Instructions: As directed (DME) Accu-Chek Guide test strips Strip See Rx Instructions .Route Qty: 100 2RF Rx Instructions: As directed (DME) lancets [Acti-Anderson Lancets] 28 gauge misc See Rx Instructions .Route Qty: 100 2RF Rx Instructions: As directed ondansetron 4 mg tablet,disintegrating 4 mg PO Q6H PRN (Reason: nausea and vomiting) Qty: 10 0RF zinc sulfate 50 mg zinc (220 mg) Capsule 220 mg PO QDAY Qty: 60 0RF dicyclomine 10 mg capsule 10 mg PO TID Qty: 60 0RF loperamide 2 mg capsule 2 mg PO TID Qty: 60 0RF midodrine 10 mg tablet 10 mg PO TID PRN (Reason: hypotension) Qty: 30 0RF Rx Instructions: do not give last dose of day after 6PM or within 4 hrs of bedtime Give as needed for blood pressure below 110 systolic (DME) compression socks, medium Misc See Rx Instructions .Route Qty: 2 0RF Rx Instructions: As directed acetaminophen-codeine 300-30 mg tablet 2 tab PO TID MDD 6 PRN (Reason: pain) Qty: 20 0RF cefdinir 300 mg capsule 300 mg PO BID Qty: 14 0RF Referrals: Sidney Dick PA-C [Primary Care Provider] - In 1 week Problem List Clinical Impression: Abdominal pain, Gastritis, Hyperglycemia, Urinary tract infection Patient/Caregiver Discharge Instructions Education Materials: Abdominal Pain, High Blood Sugar (Hyperglycemia), Urinary Tract Infections in Men, ED Gastritis (Adult) Additional Instructions: Follow-up with your primary care physician in 2 days for reevaluation worsening symptoms or any emergent concern call 911 or go to the nearest emergency room it is important to see a orthotic assistant for further evaluation and treatment of gastritis for possible EGD take your medication as directed finish entire course of antibiotic increase water intake keep hydrated Pedialyte Gatorade for every bouts of vomiting and diarrhea avoid skipping of meals avoid fatty fried high cholesterol food avoid coffee soda alcohol avoid spicy food follow-up with your primary care physician to be referred to world history teacher for further evaluation and treatment of your hyperglycemia monitor your blood sugar twice a day and go back to ER if your blood sugar greater than 250 or less than 80 or become symptomatic continue to take your medication for diabetes Print Language: Uzbek Stand Alone Forms: [facility]anca Award Info., Patient Portal Info Letter PA/JOSH Supervising Physician PA/JOSH Supervising Physician: DR Murillo
[2024-08-25 13:49] LABS: Alanine Aminotransferase 9 U/L (10-49); Albumin, Serum 4.2 gm/dL (3.5-5.0); Albumin/Globulin Ratio 1.5 (1.2-2.2); Alkaline Phosphatase 98 U/L (46-116); Anion Gap 9 (7-16); Aspartate Amino Transferase 16 U/L (0-34); BUN/Creatinine Ratio 10 Ratio (12-20); Bilirubin,Total 0.3 mg/dL (0.3-1.2); Blood Urea Nitrogen 16 mg/dL (9-23); Calcium 8.7 mg/dL (8.3-10.6); Calcium (Corrected) 8.7 mg/dL (8.5-10.1); Carbon Dioxide 24.1 mMol/L (20.0-31.0); Chloride 108 mMol/L (98-107); Creatinine (Component) 1.6 mg/dL (0.6-1.3); Estimated Creatinine Clearance 35.5 mL/min (>60); Globulin 2.8 gm/dL (2.3-3.5); Glucose 281 mg/dL (74-106); Lipase 36 U/L (12-53); Osmolality,Calculated 292 (275-295); Potassium 4.8 mMol/L (3.4-5.1); Sodium 141 mMol/L (136-145); Total Protein 7.0 gm/dL (5.7-8.2); eGFR 53 See Note
[2024-08-25 15:48] VITALS: BP 101/67; PULSE 90; RESP 18; TEMP 36.7; O2SAT 99
[2024-08-25 15:57] LABS: Collection Type, Urine Clean Catch
[2024-08-25 16:22] LABS: Bilirubin,Urine Negative (Negative); Blood,Urine Negative (Negative); Clarity,Urine Clear (Clear/Hazy); Color,Urine Lt-Yellow (Lt Yel-Yel); Glucose, Urine 3+ (Negative); Hyaline Casts,Urine < 1 /hpf (0-1); Ketones,Urine Negative (Negative); Leukocyte Esterase,Urine Positive (Negative); Nitrite,Urine Negative (Negative); PH,Urine 5.5 (5.0-7.0); Protein,Urine Negative (Neg - Trace); RBC,Urine 2 /hpf (0-3); Specific Gravity,Urine 1.017 (1.001-1.035); Squamous Epithelial Cell,Urine < 1 /hpf (0-5); Urobilinogen,Urine Negative mg/dL (0.0-1.0); WBC,Urine 2 /hpf (0-5)
[2024-08-25] MEDS: HYDROcodone/APAP 5/325 TABLET 1 TAB PO (16:35)
[2024-08-25] MEDS: SODIUM CHLORIDE 0.9% 1000 ML 1,000 ML 999 ML IV (16:37)
[2024-08-25] MEDS: FAMOTIDINE INJ 10 MG/ML VIAL 2 ML 20 MG IVP (16:39)
[2024-08-25] MEDS: ONDANSETRON INJ 2 MG/ML INJ 2 ML 4 MG IVP (16:40)
[2024-08-25 18:13] VITALS: BP 122/68; PULSE 86; RESP 19; TEMP 36.5; O2SAT 100
== END 2024-08-25 18:14 | disposition home or self-care (01) ==
PROVIDERS: Nurse Practitioner Family; Emergency Provider Emergency Medicine; PCP Physician Assistant
DX: K29.70 Gastritis, unspecified, without bleeding (principal); N39.0 Urinary tract infection, site not specified; E11.65 Type 2 diabetes mellitus with hyperglycemia
CPT/HCPCS: 36415; 74176; 80053; 81001; 83690; 85025; 96361; 96374; 96375; 99284; J2405; J3490; J7030; A9270